=== PATIENT | male | born 1930 | race Caucasian/White ===

== ENCOUNTER 2017-01-17 14:56 | Inpatient (IN) | payer MEDICARE ==
[~2017-01-17] VITALS: Ht 180.3 cm; Wt 72.4 kg
[~2017-01-17 14:56] MED LIST: CALC-766 PO; ENOX40DI8 SUBQ; Hydrocodone/Acetaminophen PO; LATA2.5D6 BOTH_EYES; LOSA100T29 PO; TIMO1DRO3 BOTH_EYES; VIT D PO; WARF7.5T4 PO
[2017-01-17 14:59] VITALS: BP 152/88; PULSE 67; RESP 16; O2SAT 100
[2017-01-17 15:23] LABS: BASOPHILS % (AUTO) 0.2 % (0-3); EOSINOPHILS % (AUTO) 1.8 % (0-5); MONOCYTES % (AUTO) 9.2 % (4-12); Mean Corpuscular Hemoglobin 26.8 pg (27.0-35.0); Mean Corpuscular Volume 85.5 fL (81-100); Platelet Count 176 bil/L (150-400)
[2017-01-17 15:39] LABS: INR 1.69 ratio
--- NOTE | 2017-01-17 16:47 | ED.REPORT ---
HPI-Dizziness / Weakness Date of Service Jan 17, 2017 ED Provider: Filippo Vann MD An 86 year old male with a history of hypertension, TIA, remote prostate cancer , and atrial fibrillation on Coumadin presents to the ED accompanied by his daughter with dizziness onset this morning. The patient also reports lightheadedness, change in speech, nausea, and unsteady ambulation due to imbalance. He denies headache, numbness, weakness, diaphoresis, fever, shortness of breath, palpitations, or other symptoms. The patient was found to be hypertensive at 164/89 while standing at home. Nursing Notes Stated Complaint: DIZZINESS Chief Complaint: General Complaint Nursing Notes Reviewed: Yes ([employer] not reconciled - patient on warfarin) Allergies: Coded Allergies: No Known Allergies (Verified Allergy, Unknown, 06/26/16) Scheduled Calcium Carbonate (Tums) 500 Mg Tab.chew 500 MG PO DAILY Cholecalciferol (Vitamin D3) (Vitamin D) 1,000 Unit Tablet 1,000 UNIT PO DAILY Donepezil (Donepezil) 5 Mg Tablet 5 MG PO HS Ferrous Gluconate (Ferrous Gluconate) 324 Mg Tablet 324 MG PO DAILY Latanoprost (Latanoprost) 2.5 Ml Drops 1 GTT BOTH_EYES HS Losartan Potassium (Losartan Potassium) 100 Mg Tablet 100 MG PO QAM Multivit with Calcium,Iron,Min (Therapeutic M) 1 Each Tablet 1 EACH PO DAILY Timolol Maleate/Pf (Timoptic 0.25% Ocudose Drop) 1 Each Droperette 1 EACH BOTH_ EYES QAM Warfarin Sodium (Warfarin Sodium) 7.5 Mg Tablet 7.5 MG PO QAM Scheduled PRN Acetaminophen (Acetaminophen) 325 Mg Tablet 325-650 MG PO Q4H PRN PRN For Fever General Time Seen by MD: 16:39 Chief Complaint Dizzy Hx Obtained From: Patient Arrived By: Walk-in Onset Occurred: 5 - 8 hours ago Symptom Duration: Since onset Severity: Current: No pain currently Severity: Maximum: No pain Associated with: Reports: Balance problem, Nausea, Denies: Fever Pertinent Negative: Relieved by nothing Related History: Reports: Atrial fibrillation, Hypertension Recent Healthcare: No recent doctor visit Risk Factors NIH Stroke Scale Level of Consciousness: Alert and responsive (0) Ask Month & Age: Both questions right (0) (Answered month wrong but knows year and birthday) Open/Close Eyes/Hand Bag Patcher: Performs both tasks (0) Horizontal EO Movements: None (0) Visual Jacobson: No visual loss (0) Facial Palsy: Normal symmetry (0) Right Arm Motor Drift (10s): No drift 10 sec (0) Left Arm Motor Drift (10s): No drift 10 sec (0) Right Leg Motor Drift (5s): No drift 5 sec (0) Left Leg Motor Drift (5s): No drift 5 sec (0) Limb Ataxia FNF/Heel-Mix: No ataxia (0) Sensation (Arms/Legs/Face): No sensory loss (0) Language Aphasia: No aphasia, normal (0) Dysarthria: No dysarthria, normal (0) Extinction/Inattention: No exctinct/inattent (0) NIHSS Score: 0 Time NIHSS Performed: 16:57 Date NIHSS Performed: Jan 17, 2017 Past Medical History Past Medical History Notes: Past Medical History Hypertension TIA Atrial fibrillation on Coumadin 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 Past Surgical History Vasectomy Right hip hemiarthroplasty Right inguinal hernia repair Cataract extraction bilaterally Smoking History Never Smoker Social History Alcohol Use: Denies alcohol use Drug Use: Denies drug use Other Social History: Good social support, Ambulatory Status Independent Review of Systems Review of Systems Note: + Speech change, Hypertension (164/89) Constitutional: Denies: Fever Respiratory: Denies: Non-productive cough, Shortness of breath Cardiovascular: Denies: Palpitations GI: Reports: Nausea, Denies: Diarrhea, Vomiting Skin: Denies Diaphoresis Neurologic: Reports: Dizziness, Lightheaded, Problem walking (Imbalance), Denies: Headache, Numbness, Weakness Complete sys rev & neg: except as marked. Physical Exam Initial Vital Signs Vital Signs (First) Date Time Temp Pulse Resp B/P Pulse Ox O2 Delivery O2 Flow Rate FiO2 01/17/17 14:59 36.4 67 16 152/88 100 Room Air Initial VS: Reviewed, Vital signs normal Skin: Warm, Dry Psychiatric: Mood/affect normal, Behavior normal, Normal thought content General/Constitutional: Awake, Alert, No acute distress Respiratory / Chest: Breath sounds NL, Breath sounds = bilat, No respiratory distress Cardiovascular: Heart rate NL, Heart sounds NL Heart Rate / Rhythm: Positive: Irregular rhythm Neurologic: Speech NL Disoriented to month, although knows year and birthday Oriented otherwise Wide-based gait Mildly positives Romberg's test Interpretation & Diagnostics Lab Results Interpretation Result Diagram: 01/17/17 1517 01/17/17 1517 Test 01/17/17 15:17 White Blood Count 6.1th/mm3 (3.8-10.1) Red Blood Count 4.62mil/mm3 (4.40-5.80) Hemoglobin 12.4g/dL (13.8-17.2) Hematocrit 39.5% (41.0-50.0) Mean Corpuscular Volume 85.5fL (81-100) Mean Corpuscular Hemoglobin 26.8pg (27.0-35.0) Mean Corpuscular Hemoglobin Concent 31.4% (32.0-37.0) Red Cell Distribution Width 16.7% (12.3-15.4) Platelet Count 176bil/L (150-400) Neutrophils (%) (Auto) 77.0% (40-74) Lymphocytes (%) (Auto) 11.5% (14-46) Monocytes (%) (Auto) 9.2% (4-12) Eosinophils (%) (Auto) 1.8% (0-5) Basophils (%) (Auto) 0.2% (0-3) Prothrombin Time 18.3sec (8.1-12.5) Prothromb Time International Ratio 1.69ratio Sodium Level 139mEq/L (134-144) Potassium Level 4.3mEq/L (3.5-5.2) Chloride Level 101mEq/L (97-108) Carbon Dioxide Level 23mmol/L (18-29) Blood Urea Nitrogen 28mg/dL (8-27) Creatinine 1.00mg/dL (0.76-1.27) Estimat Glomerular Filtration Rate 75mL/min (>59) Glucose Level 149mg/dL (60-99) Calcium Level 9.4mg/dL (8.5-10.1) Total Bilirubin 0.5mg/dL (0.0-1.2) Aspartate Amino Transf (AST/SGOT) 28U/L (0-50) Alanine Aminotransferase (ALT/SGPT) 20U/L (0-44) Alkaline Phosphatase 86U/L (25-160) Troponin T 0.012ug/L (0.0-0.011) Total Protein 7.0g/dL (6.4-8.4) Albumin 3.9g/dL (3.4-5.0) Hold Hobbs Top Tube Received (Received) Lab Results Interpretation: CBC normal CMP normal INR therapeutic Troponin- marginal elevation of uncertain significance ECG Interpretation ECG Interpretation: Rate-controlled atrial fibrillation rate 59 Nothing acute Time: 16:46 Interpreted by: ED physician X-Ray Chest Interpretation Chest Xray Interpretation: IMPRESSION: 1. No acute process. 2. Cardiomegaly. 3. Remote granulomatous disease. Dictated by: Benjamín Conroy M.D. on 01/17/2017 at 17:09 View: Portable, 1 view Interpretation / Wet Read by: Interpret - Radiologist CT Head Interpretation IMPRESSION: No acute intracranial abnormality. Dictated by: Benjamín Conroy M.D. on 01/17/2017 at 17:16 Study: Head CT no contrast Interpretation / Wet Read by: Interpret - Radiologist Re-Eval/Medical Decision Med Decision/Clinical Course This is an 86-year-old male brought by family as they noticed at 1 PM today when they came to visit that his speech was off, and his balance and dramatically changed markedly abnormal gait. Patient reports symptoms that she started around 8 AM where he felt dizzy and was having troubles with walking- but he denied numbness in the weakness or arms. He is on warfarin for atrial fibrillation. He denies headache or trauma. When his family noticed his symptoms, I ultimately were able to get him to come to the emergency department. Family notes that his speech deficit was mild but definite-and that he think it is now resolved. His balance is remained unchanged, it is poor with a new gait disturbance according to the family that has persisted. Patient has prior history of stroke. On exam the patient's well-appearing and in no visible distress. His speech is normal. He names the wrong month-buts gets the year and is able to name his birthdate - but essentially has an NIH stroke scale of 0 with no definite focal findings. He passes all the other language speech components. And his family who witnessed a speech disturbance earlier, again agree that his speech is back to normal. However when ambulating him although is energetic and jumps right up he uses a wide-based gait, and a slightly unstable-although it is not consistent that he falls to one side. The family insists this is a dramatic change in his gait from even this morning. His finger-nose was normal with no ataxia. A noncontrast head CT was negative. Patient's blood work is notable for subtherapeutic INR, the patient's in rate controlled atrial fibrillation without ischemic change. His troponin is markedly elevated-do not get any real clinically specific symptoms to suggest an acute coronary syndrome. The troponin to be trended, and his overall presentation is much more concerning for CVA. Patient is not a candidate for TPA. The patient is being admitted for continued management. An MRI has been ordered. Case is discussed with the hospitalist. Source of Hx: Old records Re-Evaluation/Progress : Time of Eval: 18:35 Patient Status: Condition improved Re-Evaluation/Progress Note: Discussed with patient CT, x-ray, and lab results, diagnosis, and plan for admit. Patient agrees with plan for care and all questions were addressed. Consultation : Referral / Consult Name: Donato Schmid MD Consulted With: Hospitalist Call Returned at: 18:13 Crystallizer Operator: Agrees with eval, Agrees with plan, Accepts admit Differential Diagnosis: Positive: Cerebrovascular accident, Negative: Acute coronary syndrome, Heat exhaustion, Heat stroke, Hyperventilation syndrome, Hypoglycemia, Hypothyroidism, Intracranial bleed, Migraine disorder, Pulmonary embolus, Sepsis, Subarachnoid hemorrhage, Tick paralysis, Vertigo, central, Vertigo, peripheral Counseled Regarding: Diagnosis, Lab results, Need for admission Patient Discharge & Departure Impression: Primary Impression: CVA (cerebral vascular accident) CVA mechanism: unspecified Qualified Code: I63.9 - Cerebral infarction, unspecified Additional Impressions: Atrial fibrillation Atrial fibrillation type: chronic Qualified Code: I48.2 - Chronic atrial fibrillation Subtherapeutic international normalized ratio (INR) Elevated troponin Disposition: ADMITTED TO HOSPITAL Discharge Condition All VS Reviewed: Yes Condition: Improved Referrals: [facility] Scribbarber Attestation Portions of this note were transcribed by Reina Clinton. I, Dr. Vann, personally performed the history, physical exam, and medical decision-making; I reviewed and confirmed the accuracy of the information in the transcribed note. Signed by: Roman Marley, 01/17/2017, 20:30 [facility] Filippo Vann MD Jan 17, 2017 16:47 REINA CLINTON Jan 17, 2017 16:56
[2017-01-17 16:50] VITALS: BP 166/89; PULSE 58; RESP 21; O2SAT 99
--- NOTE | 2017-01-17 17:36 | DRSVH ---
PROCEDURE: X-RAY CHEST ONE VIEW, PORTABLE ([id number]) INDICATIONS: CVA TECHNIQUE: One view of the chest was acquired. COMPARISON: None. FINDINGS: Surgical changes and devices: None. Lungs and pleura: No pleural effusions or pneumothorax. Scattered calcified granulomata are present within the bilateral mid and upper lungs. Lungs are otherwise clear. Mediastinum: Mediastinal contours appear normal. Heart size is enlarged. Bones and chest wall: No suspicious bony lesions. Overlying soft tissues appear unremarkable. IMPRESSION: 1. No acute process. 2. Cardiomegaly. 3. Remote granulomatous disease. Dictated by: Benjamín Conroy M.D. on 01/17/2017 at 17:09 Approved by: Benjamín Conroy M.D. on 01/17/2017 at 17:10
--- NOTE | 2017-01-17 17:36 | DRSVH ---
PROCEDURE: CT BRAIN WITHOUT CONTRAST ([id number]) INDICATIONS: cva - speech and gait - Afib on coumadin TECHNIQUE: Noncontrast 4.5 mm thick angled axial sections acquired from the foramen magnum to the vertex, with c oronal reformats. COMPARISON: None. FINDINGS: Image quality: Excellent. CSF spaces: Basal cisterns are patent. No extra-axial fluid collections. The ventricles are symmet waylon in size and shape. Brain: No intracranial bleeds or masses. There is cerebral volume loss for age, with resultant vent ricular and sulcal prominence. There are periventricular and deep white matter chronic small vessel ischemic changes. There is intracranial internal carotid artery atherosclerosis. Skull and face: Calvarium and visualized facial bones appear intact, without suspicious lesions. Sinuses: Visualized sinuses and mastoids are clear. IMPRESSION: No acute intracranial abnormality. Dictated by: Benjamín Conroy M.D. on 01/17/2017 at 17:16 Approved by: Benjamín Conroy M.D. on 01/17/2017 at 17:16
[2017-01-17 17:52] VITALS: BP 168/97; PULSE 63; RESP 18; O2SAT 100
[2017-01-17] MEDS ORDERED: CHOL100043 PO (18:03)
[2017-01-17] MEDS ORDERED: DONE5TAB30 PO (18:03)
[2017-01-17] MEDS ORDERED: DICL100G30 TOPICAL (18:03)
[2017-01-17] MEDS ORDERED: MULT-140 PO (18:09)
[2017-01-17] MEDS ORDERED: CALC500T9 PO (18:09)
[2017-01-17] MEDS ORDERED: FERR324T5 PO (18:09)
[2017-01-17] MEDS ORDERED: ACET325T51 PO (18:09)
[2017-01-17] MEDS ORDERED: 0.9% Sodium Chloride 1,000 ML IV SCH (18:27)
[2017-01-17] MEDS ORDERED: Ondansetron 2 mg/mL 2 mL Inj IVPUSH PRN (18:30)
[2017-01-17] MEDS ORDERED: Alum-Mag Hydrox-Simeth 30 mL Suspension PO PRN (18:30)
[2017-01-17 20:17] VITALS: BP 163/96; PULSE 74; RESP 18; O2SAT 99
--- NOTE | 2017-01-17 20:20 | DRSVH ---
PROCEDURE: MRI STROKE PROTOCOL ([id number]) Pre- and post-contrast brain MRI, non-contrast brain MR angiogram, pre- and postcontrast neck MR monse ogram INDICATIONS: ataxia, speech, afib subtherapeutic TECHNIQUE: Brain: Noncontrast axial T1 spin echo, axial T2 fast spin echo, sagittal and axial FLAIR, coronal T2 fast spin echo, axial gradient echo, axial diffusion and ADC through the brain. After the administr ation of contrast, axial 3D VIBE of the cranial vasculature and brain. Brain MRA: Non-contrast 3-D time of flight MR angiogram, with multiple unnidfd-vkjnixwdi-vuzlinkfpj (MIP) reformats performed. Neck MRA: Axial and sagittal TruFISP through the neck. Coronal dynamic MR angiogram during administ ration of contrast in the arterial and venous phases, with 3-dimenstional tydkjvf-hyegunrdv-hgwivwjtc n (MIP) reformats constructed from subtraction images. COMPARISON: [facility], CT, CT BRAIN WO CON, 01/17/2017, 17:10. FINDINGS: Image quality: Excellent. BRAIN: CSF spaces: Ventricles are normal in size and shape. Basal cisterns are patent. No extra-axial flu id collections. Brain: No intracranial bleeds or mass effects. Kincaid-white matter interface is normal. Diffusion we ighted images show definite bilateral cerebellar mild acute ischemic insults comprise generally of ce rebellar hemispheric punctate foci of ischemic injury, left slightly greater than right, and more sup eriorly throughout the cerebrum no additional areas of ischemic injury are found. Brainstem appears normal. Normal intravascular flow voids are present. No abnormal intracranial enhancement. Skull and face: Calvarial marrow signal is normal. Orbits appear normal. Sinuses: Sinuses and mastoids are clear. BRAIN MR ANGIOGRAM: Anterior circulation: Intracranial internal carotid arteries are normal in size and enhancement. Th e flow within the paired anterior cerebral arteries is normal and symmetric. The flow within the mid dle cerebral arteries is normal and symmetric. The anterior communicating artery is seen. No stenos es, occlusions, or aneurysms. Posterior circulation: The visualized portions of the vertebral arteries demonstrate normal caliber, and join to form a normal appearing basilar artery. The flow within the posterior cerebral arteries is normal and symmetric. No stenoses, occlusions, or aneurysms. NECK MR ANGIOGRAM: Carotids: Great vessels demonstrate a conventional anatomy as they arise from the aortic arch. The origins of the common carotid arteries appear patent. The calibers and courses of both common caroti d arteries are normal. The bifurcation regions appear normal bilaterally. The internal carotid bonnie marek demonstrate normal course and caliber. Posterior circulation: The origins of the right vertebral artery appear patent but for 4.5 cm above the origin of the left vertebral artery no flow is seen within the vessel. Flow above that level on the left appears likely retrograde. More superior portions of both vertebral arteries demonstrate no rmal course and caliber, and join to form a normal appearing basilar artery. Miscellaneous: Subclavian arteries appear patent. Pre-contrast images through the neck show no soft tissue abnormalities. IMPRESSION: BRAIN MRI: Within the cerebral hemispheres bilaterally no ischemic injury is seen but there is defin ite multifocal small punctate areas of acute or subacute ischemic injury involving the cerebellar hem ispheres bilaterally slightly greater on the left than the right. No hemorrhage or mass effect is as sociated. The appearance is suggestive of an embolic event through the posterior circulation aiden ing cephalad through the basilar artery and then extending bilaterally into the cerebellar parenchyma . BRAIN MR ANGIOGRAM: Normal intracranial MR angiogram. NECK MR ANGIOGRAM: There is a 4.5 cm length of the proximal left vertebral artery which shows no int ernal flow but above that level of the left vertebral artery can be seen as perfused, likely through retrograde flow from the posterior circulation. The more superior vertebral arteries bilaterally are patent, and the basilar artery appears normal as does the extension of posterior circulation and the posterior fossa. 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 The estimate of stenosis included in the report of the imaging study was calculated using the NASCET method Dictated by: Geraldo Chambers M.D. on 01/17/2017 at 20:08 Approved by: Geraldo Chambers M.D. on 01/17/2017 at 20:18
[2017-01-17 22:36] LABS: APPEARANCE,URINE CLEAR (CLEAR,HAZY); COLOR,URINE STRAW (YELLOW); OCCULT BLOOD,URINE TRACE (NEGATIVE); PH,URINE 5.5 (5.0-8.0); UROBILINOGEN,URINE NORMAL (NORMAL)
[2017-01-17] MEDS: 0.9% Sodium Chloride 1,000 ML IV SCH (22:54)
[2017-01-17] MEDS ORDERED: Enalaprilat 1.25 mg/mL 2 mL Inj IVPUSH PRN (22:55)
[2017-01-17] MEDS ORDERED: Labetalol 5 mg/mL 4 mL Inj IVPUSH PRN (22:55)
--- NOTE | 2017-01-17 23:00 | NUR ---
admit: admit questions and med rec completed in the ER. pt arrived to floor with family at bedside. pt A&OX3 forgetful. tele in place, IVF per orders. pt is pleasant and cooperative with care. bed alarm in place, pt instructed to call for assistance oob. will continue to monitor.
--- NOTE | 2017-01-17 23:12 | PCM.HPMED ---
Subjective Date of Service Jan 17, 2017 Primary Provider: Admitting Physician: Donato Schmid MD Primary Care Physician: Sathya Arellano Attending Physician: Donato Schmid MD Chief Complaint: Slurred speech abnormal gait HISTORY was OBTAINED FROM GRANDDAUGHTER WHO IS A NURSE/ [employer] NOTES History of present illness 86-year-old male, left handed, with only 1 TIA 8 years ago in [place] with negative radiographic workup at that time, with chronic atrial fibrillation that started more than 8 years ago, BIB family after he tolerated breakfast this morning then complained of nausea and lightheadedness, he took a nap, by that time granddaughter who is a nurse stopped by, she found him to have slurred speech w/ blood pressure 164/89 heart rate 60s and unsteady gait. No recent aspirin use. No recent echo. Not diabetic. no change in diet. no change in medications. typically INR 2.4-2.5. In the ER INR for atrial fibrillation is 1.7, slurred speech resolved, unsteady wide based gait ongoing, MR angio is consistent with bilateral left greater than right embolic cerebrallar stroke acute/subacute. Review of Systems - none of the following - F/C/sick contact / wt change/ ALEMAN / sob / cough / cp / acid reflux / n/v/diarrhea / bleeding/bruising / leg swelling / change in voiding / yeast infections / rash ambulates w/ cane FAMILY HX no CVA SOCIAL HX no smoking no alcohol MEDICATIONS Scheduled Calcium Carbonate (Tums) 500 Mg Tab.chew 500 MG PO DAILY Cholecalciferol (Vitamin D3) (Vitamin D) 1,000 Unit Tablet 1,000 UNIT PO DAILY Donepezil (Donepezil) 5 Mg Tablet 5 MG PO HS Ferrous Gluconate (Ferrous Gluconate) 324 Mg Tablet 324 MG PO DAILY Latanoprost (Latanoprost) 2.5 Ml Drops 1 GTT BOTH_EYES HS Losartan Potassium (Losartan Potassium) 100 Mg Tablet 100 MG PO QAM Multivit with Calcium,Iron,Min (Therapeutic M) 1 Each Tablet 1 EACH PO DAILY Timolol Maleate/Pf (Timoptic 0.25% Ocudose Drop) 1 Each Droperette 1 EACH BOTH_ EYES QAM Warfarin Sodium (Warfarin Sodium) 7.5 Mg Tablet 7.5 MG PO QAM Acetaminophen (Acetaminophen) 325 Mg Tablet 325-650 MG PO Q4H PRN PRN For Fever Past Medical/Surgical HX Hypertension TIA 8 years ago unilateral weakness resolved Atrial fibrillation on Coumadin 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 Vasectomy Right hip hemiarthroplasty Right inguinal hernia repair Cataract extraction bilaterally Exam on admission on RA NAD A and O x 3 mood affect WNL easily awakened NC/AT no icterus no injected eyes EOMI PERRL /no pharyngeal lesions/ no oral lesions / hearing intact Supple neck CTAB equal chest rise / no accessory muscle use / speaks in full sentences / no rrw RRR S1 S2 / no mrg / 2+ radial pulses Soft nt nd + BS no hepatosplenomegaly No edema no cyanosis no ecchymosis of lower extremities No rash / no jaundice SOLORZANO CNII-XII grossly intact symmetrical, symmetrical facies, except for slurred speech mild dysmetria of bilateral upper and left lower limbs, moderate dysmetria of right lower limb Strength grossly intact of bilateral upper and lower limbs, except weaker left upper extremity abduction and weaker left wrist strength STUDIES EKG afib 59 CXR cardiomegaly, granulomatous disease hx Trop 0.02 BNP pending LFT normal Imaging PROCEDURE: MRI STROKE PROTOCOL ([id number]) Pre- and post-contrast brain MRI, non-contrast brain MR angiogram, pre- and postcontrast neck MR angiogram INDICATIONS: ataxia, speech, afib subtherapeutic TECHNIQUE: Brain: Noncontrast axial T1 spin echo, axial T2 fast spin echo, sagittal and axial FLAIR, coronal T2 fast spin echo, axial gradient echo, axial diffusion and ADC through the brain. After the administration of contrast, axial 3D VIBE of the cranial vasculature and brain. Brain MRA: Non-contrast 3-D time of flight MR angiogram, with multiple maximum- intensity-projection (MIP) reformats performed. Neck MRA: Axial and sagittal TruFISP through the neck. Coronal dynamic MR angiogram during administration of contrast in the arterial and venous phases, with 3-dimenstional jsxloaf-bwfnukujf-cgxuhojgck (MIP) reformats constructed from subtraction images. COMPARISON: [facility], CT, CT BRAIN WO CON, 01/17/2017, 17:10. FINDINGS: Image quality: Excellent. BRAIN: CSF spaces: Ventricles are normal in size and shape. Basal cisterns are patent. No extra-axial fluid collections. Brain: No intracranial bleeds or mass effects. Kincaid-white matter interface is normal. Diffusion weighted images show definite bilateral cerebellar mild acute ischemic insults comprise generally of cerebellar hemispheric punctate foci of ischemic injury, left slightly greater than right, and more superiorly throughout the cerebrum no additional areas of ischemic injury are found. Brainstem appears normal. Normal intravascular flow voids are present. No abnormal intracranial enhancement. Skull and face: Calvarial marrow signal is normal. Orbits appear normal. Sinuses: Sinuses and mastoids are clear. BRAIN MR ANGIOGRAM: Anterior circulation: Intracranial internal carotid arteries are normal in size and enhancement. The flow within the paired anterior cerebral arteries is normal and symmetric. The flow within the middle cerebral arteries is normal and symmetric. The anterior communicating artery is seen. No stenoses, occlusions, or aneurysms. Posterior circulation: The visualized portions of the vertebral arteries demonstrate normal caliber, and join to form a normal appearing basilar artery. The flow within the posterior cerebral arteries is normal and symmetric. No stenoses, occlusions, or aneurysms. NECK MR ANGIOGRAM: Carotids: Great vessels demonstrate a conventional anatomy as they arise from the aortic arch. The origins of the common carotid arteries appear patent. The calibers and courses of both common carotid arteries are normal. The bifurcation regions appear normal bilaterally. The internal carotid arteries demonstrate normal course and caliber. Posterior circulation: The origins of the right vertebral artery appear patent but for 4.5 cm above the origin of the left vertebral artery no flow is seen within the vessel. Flow above that level on the left appears likely retrograde. More superior portions of both vertebral arteries demonstrate normal course and caliber, and join to form a normal appearing basilar artery. Miscellaneous: Subclavian arteries appear patent. Pre-contrast images through the neck show no soft tissue abnormalities. IMPRESSION: BRAIN MRI: Within the cerebral hemispheres bilaterally no ischemic injury is seen but there is definite multifocal small punctate areas of acute or subacute ischemic injury involving the cerebellar hemispheres bilaterally slightly greater on the left than the right. No hemorrhage or mass effect is associated. The appearance is suggestive of an embolic event through the posterior circulation traversing cephalad through the basilar artery and then extending bilaterally into the cerebellar parenchyma. BRAIN MR ANGIOGRAM: Normal intracranial MR angiogram. NECK MR ANGIOGRAM: There is a 4.5 cm length of the proximal left vertebral artery which shows no internal flow but above that level of the left vertebral artery can be seen as perfused, likely through retrograde flow from the posterior circulation. The more superior vertebral arteries bilaterally are patent, and the basilar artery appears normal as does the extension of posterior circulation and the posterior fossa. 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, subtherapeutic INR, in the setting of chronic atrial fibrillation, ongoing wide-based gait/dysmetria /slurred speech/ left upper extremity weakness (patient attributes to left shoulder issues?) -- Pending echo, lipid panel, PT OT permissive hypertension, when necessary labetalol and enalapril, hold home losartan -- Statin, hold aspirin, continue Coumadin --s/p MRI head/neck, unremarkable CT head -- Review of up-to-date indicates increasing anticoagulation from 2-3 to 2.5-3.5 , after hemorrhagic conversion period has passed within 24-48 hours, already ordered coumadin for pharmacy to dose for goal INR 2.5 ordered tonight. 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 Vasectomy Right hip hemiarthroplasty Right inguinal hernia repair Cataract extraction bilaterally Diet tolerated pudding w RN eval DVT prophylaxis heparin scd ambulate -- DC HEPARIN WHEN INR > 2.5 Code full Disposition OBS status Assessment and plan were discussed with patient granddaughter Allergies Coded Allergies: No Known Allergies (Verified Allergy, Unknown, 06/26/16) PMH Social History Hx Alcohol Use: No Hx Substance Use: No Smoking Status: Never Smoker Exam Vital Signs Vital Sign - Last Date Time Temp Pulse Resp B/P Pulse Ox O2 Delivery O2 Flow Rate FiO2 01/17/17 20:17 36.6 74 18 163/96 99 Room Air Lab and Diagnostics Result Diagram: 01/17/17 1517 01/17/17 1517 Donato Schmid MD Jan 17, 2017 23:12
[2017-01-18] VITALS (7 sets, daily range): BP systolic 98–165; BP diastolic 63–93; PULSE 58–77; RESP 16–20; O2SAT 96–99
[2017-01-18 06:20] LABS: INR 1.79 ratio
[2017-01-18 06:28] LABS: TROPONIN T 0.021 ug/L (0.0-0.011)
[2017-01-18] MEDS: 0.9% Sodium Chloride 1,000 ML IV SCH ×2 (07:58→19:38)
[2017-01-18] MEDS: TIMOLOL 0.25% BOTH_EYES SCH (07:59)
[2017-01-18 08:30] LABS: Creatine Kinase 143 U/L (21-232)
--- NOTE | 2017-01-18 11:35 | NUR ---
Evaluation completed. Please go to "Notes" then click on "Assessments and Notes" (bottom left corner of screen). Then select appropriate discipline tab on top of screen.
--- NOTE | 2017-01-18 15:32 | NUR ---
SW updated by MARK RN that pt has been switched to inpt, TRENA signed at bedside with pt. MARCIANO Rand
--- NOTE | 2017-01-18 15:42 | NUR ---
Inpatient status effective today, 01/18/17
--- NOTE | 2017-01-18 15:46 | NUR ---
Social Work-initial assessment: Data:See initial assessment. Pt is a 86 y/o male who was admitted on 01/17/17 for CVA per H&P. Pt's insurance is [employer] and PCP is AKTIE Cruz. EMR Reviewed. SW met with pt at bedside to discuss discharge planning, SW role explained. Pt is alert and oriented x3. Pt resides at home with his where he remains independent with ADLS. Pt does not use any DME and does drive. Pt has no HH, but has a history of [facility] [place]. Pt states his has assistance from visiting [employer](private pay caregiving) at home. Pt has no long-term care insurance or VA benefits. SW discussed DPOA/ advanced directive, pt confirms that he has completed this, SW encouraged pt to bring a copy into the hospital. PT/OT/ST are pending. Pt feels like he has enough assistance at home. SW to follow up post therapy services to determine needs. Pt's family to provide transport home when medically stable. SW provided phone number and plan on white board in room. SW will continue to follow. Assessment:Pt who is independent at baseline. Plan:Anticipate pt to return home when medically stable via POV. PT/OT/ST are pending. SW will continue to follow. MARCIANO Rand Addendum: 01/18/17 at 1555 by MARTINEZ FITZGERALD SS Amended: Links added.
[2017-01-18] MEDS ORDERED: Warfarin 5 MG, Warfarin 2.5 MG PO ONE ×2 (17:00)
--- NOTE | 2017-01-18 18:07 | NUR ---
Evaluation completed. Please go to "Notes" then click on "Assessments and Notes" (bottom left corner of screen). Then select appropriate discipline tab on top of screen.
--- NOTE | 2017-01-18 19:27 | PCM.PNMED ---
Subjective Date of Service Jan 18, 2017 Subjective 86-year-old male with past medical history significant for TIA 8 years ago, hypertension, atrial fibrillation on Coumadin who presents to the emergency department with lightheadedness followed by slurred speech and called the walking. This morning patient reports doing well, he has no pain. He does not endorse any residual slurred speech. She is having no trouble eating. He does have some difficulty walking however is able to with assist. Exam Vital Signs Vital Sign - Last Date Time Temp Pulse Resp B/P Pulse Ox O2 Delivery O2 Flow Rate FiO2 01/18/17 06:11 64 01/18/17 02:06 36.1 18 165/92 96 Room Air Exam General: No acute distress, well-developed, well-nourished, appropriately interactive HEENT: Normocephalic, atraumatic. External ears without defect. Pupils equal, round, and reactive to light and accommodation. Anicteric sclerae, moist conjunctivae, and no lid lag. Oropharynx free of erythema and cobble stoning with moist mucosa. Neck: Supple with full range of motion. No jugular venous distension. No lymphadenopathy or thyromegaly. Cardiovascular: Regular rate and rhythm with no murmurs, rubs, or gallops appreciated Pulmonary: Clear to auscultation bilaterally with no crackles, wheezes, or rhonchi. Normal respiratory effort with no use of accessory muscles. Abdomen: Bowel tones present. Soft, nontender, nondistended. No hepatosplenomegaly or masses appreciated. Extremities: No clubbing, cyanosis, edema, or lymphadenopathy appreciated. Skin: Normal temperature, turgor, and texture; no rash, ulcers, or subcutaneous nodules appreciated. Neurological: Cranial nerves grossly intact. Normal muscle strength, tone, and bulk. Kipo-[id number] ataxic, finger to nose essentially normal. Patient speaks in full sentences that are intelligible. Psychiatric: Normal mood and affect. Alert and oriented to person, place, and time. Lab and Diagnostics Result Diagram: 01/17/17 1517 01/17/17 1517 X-Rays, CTs and MRIs PROCEDURE: X-RAY CHEST ONE VIEW, PORTABLE ([id number]) Lungs and pleura: No pleural effusions or pneumothorax. Scattered calcified granulomata are present within the bilateral mid and upper lungs. Lungs are otherwise clear. IMPRESSION: 1. No acute process. 2. Cardiomegaly. 3. Remote granulomatous disease. Dictated by: Benjamín Conroy M.D. on 01/17/2017 at 17:09 PROCEDURE: CT BRAIN WITHOUT CONTRAST ([id number]) IMPRESSION: No acute intracranial abnormality. Dictated by: Benjamín Conroy M.D. on 01/17/2017 at 17:16 PROCEDURE: MRI STROKE PROTOCOL ([id number]) IMPRESSION: BRAIN MRI: Within the cerebral hemispheres bilaterally no ischemic injury is seen but there is definite multifocal small punctate areas of acute or subacute ischemic injury involving the cerebellar hemispheres bilaterally slightly greater on the left than the right. No hemorrhage or mass effect is associated. The appearance is suggestive of an embolic event through the posterior circulation traversing cephalad through the basilar artery and then extending bilaterally into the cerebellar parenchyma. BRAIN MR ANGIOGRAM: Normal intracranial MR angiogram. NECK MR ANGIOGRAM: There is a 4.5 cm length of the proximal left vertebral artery which shows no internal flow but above that level of the left vertebral artery can be seen as perfused, likely through retrograde flow from the posterior circulation. The more superior vertebral arteries bilaterally are patent, and the basilar artery appears normal as does the extension of posterior circulation and the posterior fossa. 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 The estimate of stenosis included in the report of the imaging study was calculated using the NASCET method Dictated by: Geraldo Chambers M.D. on 01/17/2017 at 20:08 Assessment & Plan 86-year-old male with past medical history significant for TIA 8 years ago, hypertension, atrial fibrillation on Coumadin who presents to the emergency department with lightheadedness followed by slurred speech and called the walking. 1. 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 - Lipid panel normal - permissive hypertension, when necessary labetalol and enalapril, hold home losartan - Statin, hold aspirin until 01/19/2017 once hemorrhagic conversion timeframe has passed, continue Coumadin - MRI head/neck results above, unremarkable CT head - Review of up-to-date indicates increasing anticoagulation from 2-3 to 2.5-3.5 , after hemorrhagic conversion period has passed within 24-48 hours, coumadin for pharmacy to dose for goal INR 2.5 - uptodate recommends against antiplatelet due to higher chance of hemorrhagic conversion 2. Elevated troponin of undetermined significance, present on admission, active - Troponin mildly elevated with maximum of 0.024 - Patient has no chest pain, back pain, shoulder pain, shortness of breath, or diaphoresis - EKG shows atrial fibrillation at a rate of 59, no ST changes - Continue to follow Chronic issues known prior to admission, present on admission Hypertension -Allow for permissive hypertension, restart home losartan 01/20/2017 TIA 8 years ago unilateral weakness resolved Atrial fibrillation on Coumadin Right hip hemiarthroplasty -Patient with stiffness in the [id number] exam DVT prophylaxis heparin scd ambulate -- DC HEPARIN WHEN INR > 2.5 Patient was admitted under inpatient status with expected length of stay greater than 2 midnights due to severity of presenting symptoms, risk of adverse event, and complexity of treatment plan. Physical therapy anticipates discharge to home with no needs Pain Evaluation: Adequate Pain Control GI Prophylaxis: Not indicated VTE Prophylaxis: Sub-Q Heparin (Unfractionated) VTE Mechanical Devices: Intermittant Pneumatic CD Resuscitation Status: CPR: Attempt Resuscitation Attending Statement The patient was seen and examined together with Dr. Velazquez on 01/18/2017 and I agree with the history, exam and plan as outlined in the note above. Mary Velazquez DO Jan 18, 2017 07:44 Cricket Rice MD Jan 19, 2017 11:36
[2017-01-19] VITALS (9 sets, daily range): BP systolic 141–169; BP diastolic 69–86; PULSE 60–75; RESP 18–20; O2SAT 95–100
[2017-01-19] MEDS: Heparin 5,000 Unit/mL Inj SUBQ SCH ×3 (00:04→17:00)
[2017-01-19 06:48] LABS: INR 1.8 ratio
[2017-01-19 07:59] LABS: TROPONIN T 0.021 ug/L (0.0-0.011)
[2017-01-19] MEDS: TIMOLOL 0.25% BOTH_EYES SCH (10:13)
--- NOTE | 2017-01-19 11:32 | NUR ---
Social Work-readiness for discharge: Data:EMR reviewed. Pt is on day 2 of hospitalization for CVA per H&P. Pt is not medically stable for discharge anticipate 1-2 more days. PT and ST both saw pt yesterday and cleared pt for home no needs. Pt's INR is not therapeutic yet. SW confirmed plan of home no needs. Pt's family to provide transport home. No discharge needs identified. SW will continue to follow if needs arise. Assessment:pt who is independent at baseline. Plan:Pt to discharge home when medically stable via POV. No discharge needs identified. SW will continue to follow if needs arise. MARCIANO Rand
[2017-01-19] MEDS: 0.9% Sodium Chloride 1,000 ML IV SCH (12:24)
--- NOTE | 2017-01-19 13:23 | PCM.PNMED ---
Subjective Date of Service Jan 19, 2017 Agustina Denise is an 86-year-old male with past medical history significant for TIA 8 years ago, hypertension, atrial fibrillation on Coumadin who presents to the emergency department with lightheadedness followed by slurred speech and called the walking. 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 Hospital day #3 Overnight: No acute events. Today: The patient states his speech is back to normal and so is his gait. Overall he states he feels well and has no complaints. The remainder of the review of systems is negative except as noted above. Exam Vital Signs Vital Sign - Last Date Time Temp Pulse Resp B/P Pulse Ox O2 Delivery O2 Flow Rate FiO2 01/19/17 09:43 36.3 60 18 147/71 100 Room Air Intake and Output 01/18/17 01/18/17 01/19/17 Cumulative From/Thru 15:00 23:00 07:00 01/17/17 14:59 - 01/19/17 06:39 Intake Total 0 ml 2210 ml 300 ml 2510 ml Output Total 300 ml 880 ml 1325 ml 2505 ml Balance -300 ml 1330 ml -1025 ml 5 ml Intake Oral 0 ml 1382 ml 300 ml 1682 ml IV Total 828 ml 828 ml Output Urine Total 300 ml 880 ml 1325 ml 2505 ml # Bowel Movements 1 1 Exam General: No acute distress, well-developed, well-nourished, appropriately interactive HEENT: Normocephalic, atraumatic. External ears without defect. Pupils equal, round, and reactive to light and accommodation. Anicteric sclerae, moist conjunctivae, and no lid lag. Oropharynx free of erythema and cobble stoning with moist mucosa. Neck: Supple with full range of motion. No jugular venous distension. No lymphadenopathy or thyromegaly. Cardiovascular: Irregularly irregular with no murmurs, rubs, or gallops appreciated Pulmonary: Clear to auscultation bilaterally with no crackles, wheezes, or rhonchi. Normal respiratory effort with no use of accessory muscles. Abdomen: Bowel tones present. Soft, nontender, nondistended. No hepatosplenomegaly or masses appreciated. Extremities: No clubbing, cyanosis, edema, or lymphadenopathy appreciated. Skin: Normal temperature, turgor, and texture; no rash, ulcers, or subcutaneous nodules appreciated. Neurological: Cranial nerves grossly intact. Normal muscle strength, tone, and bulk. Patient speaks in full sentences that are intelligible. Psychiatric: Normal mood and affect. Alert and oriented to person, place, and time. Lab and Diagnostics Result Diagram: 01/17/17 1517 01/19/17 0519 X-Rays, CTs and MRIs PROCEDURE: X-RAY CHEST ONE VIEW, PORTABLE Lungs and pleura: No pleural effusions or pneumothorax. Scattered calcified granulomata are present within the bilateral mid and upper lungs. Lungs are otherwise clear. IMPRESSION: 1. No acute process. 2. Cardiomegaly. 3. Remote granulomatous disease. Dictated by: Benjamín Conroy M.D. on 01/17/2017 at 17:09 PROCEDURE: CT BRAIN WITHOUT CONTRAST IMPRESSION: No acute intracranial abnormality. Dictated by: Benjamín Conroy M.D. on 01/17/2017 at 17:16 PROCEDURE: MRI STROKE PROTOCOL IMPRESSION: BRAIN MRI: Within the cerebral hemispheres bilaterally no ischemic injury is seen but there is definite multifocal small punctate areas of acute or subacute ischemic injury involving the cerebellar hemispheres bilaterally slightly greater on the left than the right. No hemorrhage or mass effect is associated. The appearance is suggestive of an embolic event through the posterior circulation traversing cephalad through the basilar artery and then extending bilaterally into the cerebellar parenchyma. BRAIN MR ANGIOGRAM: Normal intracranial MR angiogram. NECK MR ANGIOGRAM: There is a 4.5 cm length of the proximal left vertebral artery which shows no internal flow but above that level of the left vertebral artery can be seen as perfused, likely through retrograde flow from the posterior circulation. The more superior vertebral arteries bilaterally are patent, and the basilar artery appears normal as does the extension of posterior circulation and the posterior fossa. 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 The estimate of stenosis included in the report of the imaging study was calculated using the NASCET method Dictated by: Geraldo Chambers M.D. on 01/17/2017 at 20:08 Assessment & Plan Misael Denise is an 86-year-old male with past medical history significant for TIA 8 years ago, hypertension, atrial fibrillation on Coumadin who presents to the emergency department with lightheadedness followed by slurred speech and called the walking. 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 Hospital day #3 1. 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 - Improved gait/dysmetria - slurred speech resolved - left upper extremity weakness (patient attributes to left shoulder issues?) - Echo pending - PT cleared patient to go home - Speech therapy recommends Thin/Dysphagia Mechanical diet with medication as tolerated. - Lipid panel normal - permissive hypertension for 24 hours, when necessary labetalol and enalapril, will restart home losartan - Statin, restart ASA once hemorrhagic conversion timeframe has passed, continue Coumadin - MRI head/neck results above, unremarkable CT head - Review of up-to-date indicates increasing anticoagulation from 2-3 to 2.5-3.5 , after hemorrhagic conversion period has passed within 24-48 hours, coumadin for pharmacy to dose for goal INR 2.5 - uptodate recommends against antiplatelet due to higher chance of hemorrhagic conversion 2. Elevated troponin of undetermined significance, present on admission, active - Troponin mildly elevated with maximum of 0.024 - Patient has no chest pain, back pain, shoulder pain, shortness of breath, or diaphoresis - EKG shows atrial fibrillation at a rate of 59, no ST changes - Continue to follow Chronic issues known prior to admission, present on admission Hypertension -Allow for permissive hypertension for 24 hours -Restarted home losartan TIA 8 years ago unilateral weakness resolved Atrial fibrillation on Coumadin Right hip hemiarthroplasty -Patient with stiffness in the qjrk-tv-bonh exam DVT prophylaxis heparin scd ambulate -- DC HEPARIN WHEN INR > 2.5 Dispo: Anticipate patient will be in house for several more days while his INR becomes therapeutic as his CVA is a direct result of his AFib. GI Prophylaxis: Not indicated VTE Prophylaxis: Sub-Q Heparin (Unfractionated) VTE Mechanical Devices: Intermittant Pneumatic CD Resuscitation Status: CPR: Attempt Resuscitation Attending Statement The patient was seen and examined together with Dr. Ross on 01/19/2017 and I agree with the history, exam and plan as outlined in the note above. Macey Ross DO Jan 19, 2017 13:12 Cricket Rice MD Jan 19, 2017 17:44
--- NOTE | 2017-01-19 14:44 | NUR ---
INR COAGULATION P- Patient is subtherapeutic INR today 1.8. I- Heparin SQ given Q8hrs, Coumadin at 1700 until INR> 2.5 E- Continue to monitor.
--- NOTE | 2017-01-19 15:30 | NUR ---
Assumed care Assumed care of pt at 1525, introduced myself to pt who was sitting up in bed, visiting with family. Denies any pain/discomfort at this time.
[2017-01-19] MEDS ORDERED: Warfarin 5 MG, Warfarin 2.5 MG PO ONE ×2 (17:00)
--- NOTE | 2017-01-19 21:39 | NUR ---
Neuro: Neuro assessment without significant finding. Pt alert and oriented, makes needs known. Strength/cancer program coordinator equal bilateral. Pt aware of plan of care and further tests due tomorrow. Tylenol administered for sleep as pt states getting very little sleep the past 2 nights.
[2017-01-20] VITALS (8 sets, daily range): BP systolic 124–161; BP diastolic 69–90; PULSE 55–74; RESP 16–20; O2SAT 96–100
[2017-01-20] MEDS: 0.9% Sodium Chloride 1,000 ML IV SCH (00:02)
[2017-01-20] MEDS: Heparin 5,000 Unit/mL Inj SUBQ SCH ×3 (00:37→17:17)
--- NOTE | 2017-01-20 05:26 | NUR ---
V tach: Pt with 5 beats of V tach through the night while sleeping; assymptomatic. MD notified. Labs ordered for this morning.
[2017-01-20 06:27] LABS: BASOPHILS % (AUTO) 0.4 % (0-3); EOSINOPHILS % (AUTO) 4.7 % (0-5); MONOCYTES % (AUTO) 12.2 % (4-12); Mean Corpuscular Hemoglobin 26.4 pg (27.0-35.0); Mean Corpuscular Volume 85.2 fL (81-100); NEUTROPHILS % (AUTO) 61.7 % (40-74); Platelet Count 156 bil/L (150-400)
[2017-01-20 06:43] LABS: INR 2.05 ratio
[2017-01-20 06:45] LABS: Magnesium 2.2 mg/dL (1.6-2.6)
[2017-01-20] MEDS: TIMOLOL 0.25% BOTH_EYES SCH (08:36)
--- NOTE | 2017-01-20 11:39 | DRSVH ---
[facility] [address] [place] [address] Echocardiogram Report Name: CHAY CADET RStudy Date: 01/20/2017 Height: 71 in Hospital Exam Location: [facility] Weight: 161 lb Gender: Male BSA: 1.9 m2 : 1930 Age: 86 yrs BP: 136/81 mmHg Reason For Study: Stroke History: hypertension, TIA Ordering Physician: Performed By: Annette Triplett Referring Physician: Sathya Arellano Interpretation Summary The patient was in atrial fibrillation with heart rates between 48-66 bpm during the exam. The left ventricle is normal in size. The ejection fraction is estimated to be 60-65%. There is no LV thrombus. The right ventricle is mildly dilated. The right ventricular systolic function is normal. There is severe biatrial enlargement. There is borderline mitral valve prolapse. There is prolapse of the posterior mitral valve leaflet(s). There is moderate mitral regurgitation. There is mild aortic regurgitation. There is no hemodynamically significant valvular aortic stenosis. There is mild to moderate tricuspid regurgitation. The right ventricular systolic pressure is estimated at 44 mmHg assuming a right atrial pressure of 8 mm Hg. Procedure: A two-dimensional transthoracic echocardiogram with color flow and Doppler was performed. The study quality was technically adequate. There is no prior echocardiogram noted for this patient. The patient was in atrial fibrillation with heart rates between 48-66 bpm during the exam. Left Ventricle: Proximal septal thickening is noted. There is mild concentric left ventricular hypertrophy. The left ventricle is normal in size. There is no echo evidence for significant left ventricular outflow tract obstruction. There is no thrombus. The ejection fraction is estimated to be 60-65%. There are no focal wall motion abnormalities. Diastolic function could not be accurately assessed due to atrial fibrillation. Right Ventricle: The right ventricle is mildly dilated. The right ventricular systolic function is normal. Atria: There is severe biatrial enlargement. There is no Doppler evidence for an interatrial shunt. Mitral Valve: There is mild to moderate mitral annular calcification. The mitral valve leaflets are mildly calcified. There is prolapse of the posterior mitral valve leaflet(s). There is borderline mitral valve prolapse. There is moderate mitral regurgitation. The mitral regurgitant jet is eccentrically directed. Aortic Valve: The aortic valve is trileaflet. The aortic valve is mildly calcified. Leaflet mobility is mildly reduced. There is no hemodynamically significant valvular aortic stenosis. There is mild aortic regurgitation. Tricuspid Valve: The tricuspid valve leaflets are thickened and/or calcified, but open well. There is borderline tricuspid valve prolapse. Redundant elongated chordae are noted. There is mild to moderate tricuspid regurgitation. The right ventricular systolic pressure is estimated at 44 mmHg assuming a right atrial pressure of 8 mm Hg. Pulmonic Valve: The pulmonic valve is not well seen, but is grossly normal. There is trace pulmonic regurgitation. Great Vessels: The aortic root is normal size. There is aortic root sclerosis/calcification. The ascending aorta is mildly enlarged. The aortic arch could not be visualized. The IVC is dilated (diameter is greater than 2.1 cm) yet it collapses greater than 50% with a sniff. This suggests a right atrial pressure of 8 mm Hg. Pericardium/ Pleura There is no pericardial effusion. There is no pleural effusion. MMode/2D Measurements & Calculations LVIDd: 4.4 cmLA dimension: 5.0 cm RA long axis: 7.0 cm LVOT diam LVIDs: 2.4 cm FS: 46.2 % LA A2 area: 30.1 cm RA area: 26.8 cm AoV Opening EPSS: 0.57 cmLA A4 area: 38.4 cm RA vol: 87.3 ml IVSd: 1.1 cm LA length (vol): 7.8 cm RA : 45.4 ml/m2 Ao root diam LVPWd: 1.1 cmLA vol: 125.4 ml asc Aorta Diam LA vol index: 65.2 ml/m IVC diam: 2.3 cm TYSHAWN (plan) LV guzman. diameter/BSA LV sys. diameter/BSA RVD1 (basal) : 2.1 cm2 (cm/m^2): 2.3 (cm/m^2): 1.2 : 4.5 cm TAPSE: 1.4 cm Doppler Measurements & Calculations Ao V2 max: 139.2 cm/secMV E max fabricio Med Peak E' Fabricio TR max fabricio Ao max P.8 mmHg : 89.6 cm/sec : 301.1 cm/sec Ao mean P.1 mmHg E/E' med: 13.0 TR max PG LVOT Max Fabricio Lat Peak E' Fabricio : 36.3 mmHg : 60.5 cm/sec PA V2 max TYSHAWN(I,D): 2.2 cm E/E' lat: 9.1 : 65.9 cm/sec sev ratio: 0.44 E/e' average PA mean PG AI P1/2t: 701.4 msec : 0.88 mmHg AI dec slope PA Accel Time : 119.2 cm/s2c : 0.10 sec MV dec time: 0.19 sec Ao V2 mean LV V1 max PG PA V2 mean : 96.6 cm/sec : 44.5 cm/sec Ao V2 VTI LV V1 VTI: 14.1 cm TYSHAWN(V,D): 2.2 cm2 TYSHAWN indexed to BSA (cm^2/m^2): 1.2 Reading Physician:JO
--- NOTE | 2017-01-20 14:35 | PCM.PHAPRO ---
Progress WARFARIN MANAGEMENT PER PHARMACY [facility] NTV AK RTM DFF Date Jan 18-Jan 19-Jan 20-Dec INR 1.69 1.79 1.80 2.05 INR change 0.1 0.01 0.25 Warf Dose 7.5 7.5 7.5 Subtherapeutic based on new goal of 2.5-3.5 per team. With up-trend, will continue warfarin 7.5mg today and continue to monitor. Irving Andrews, PharmD Irving Andrews Jan 20, 2017 14:35
[2017-01-20] MEDS ORDERED: Warfarin 5 MG, Warfarin 2.5 MG PO ONE ×2 (17:00)
--- NOTE | 2017-01-20 18:00 | NUR ---
Tests-doppler Pleasant and cooperative pt, able to make needs known and uses call light appropriately. ECHO completed in room today and results discussed with pt and family by MD. Doppler pending to be done tomorrow d/t technical failure. Bed in low position, upper rails up, call light in reach.
--- NOTE | 2017-01-20 18:16 | PCM.PNMED ---
Subjective Date of Service Jan 20, 2017 Subjective 86-year-old male with past medical history significant for TIA 8 years ago, hypertension, atrial fibrillation on Coumadin who presents to the emergency department with lightheadedness followed by slurred speech and called the walking. Overnight patient had 5 beats of V. tach while sleeping. He was asymptomatic. This morning patient reports feeling well. He is standing in his room getting ready to sit and read the paper in his bedside chair. She reports no pain or discomfort. He feels his gait is normal as he has had his right hip replaced previously. He is able to ambulate into the hallway and back without evidence of unsteadiness. Exam Vital Signs Vital Sign - Last Date Time Temp Pulse Resp B/P Pulse Ox O2 Delivery O2 Flow Rate FiO2 01/20/17 05:47 36.4 55 20 136/81 97 Room Air Intake and Output 01/19/17 01/19/17 01/20/17 Cumulative From/Thru 15:00 23:00 07:00 01/17/17 14:59 - 01/20/17 05:47 Intake Total 1000 ml 3510 ml Output Total 2505 ml Balance 1000 ml 1005 ml Intake Oral 1000 ml 2682 ml IV Total 828 ml Output Urine Total 2505 ml # Voids 4 4 # Bowel Movements 0 1 Exam General: No acute distress, well-developed, well-nourished, appropriately interactive HEENT: Normocephalic, atraumatic. External ears without defect. Pupils equal, round, and reactive to light and accommodation. Anicteric sclerae, moist conjunctivae, and no lid lag. Oropharynx free of erythema and cobble stoning with moist mucosa. Neck: Supple with full range of motion. No jugular venous distension. No lymphadenopathy or thyromegaly. Cardiovascular: Regular rate and rhythm with no murmurs, rubs, or gallops appreciated Pulmonary: Clear to auscultation bilaterally with no crackles, wheezes, or rhonchi. Normal respiratory effort with no use of accessory muscles. Abdomen: Bowel tones present. Soft, nontender, nondistended. No hepatosplenomegaly or masses appreciated. Extremities: No clubbing, cyanosis, edema, or lymphadenopathy appreciated. Skin: Normal temperature, turgor, and texture; no rash, ulcers, or subcutaneous nodules appreciated. Neurological: Cranial nerves grossly intact. Normal muscle strength, tone, and bulk. [id number] mildly ataxic, much improved since 2 days prior. finger to nose normal bilaterally. Patient speaks in full sentences that are intelligible. Psychiatric: Normal mood and affect. Alert and oriented to person, place, and time. Lab and Diagnostics Result Diagram: 01/20/1760401/20/17604 X-Rays, CTs and MRIs PROCEDURE: X-RAY CHEST ONE VIEW, PORTABLE Lungs and pleura: No pleural effusions or pneumothorax. Scattered calcified granulomata are present within the bilateral mid and upper lungs. Lungs are otherwise clear. IMPRESSION: 1. No acute process. 2. Cardiomegaly. 3. Remote granulomatous disease. Dictated by: Benjamín Conroy M.D. on 01/17/2017 at 17:09 PROCEDURE: CT BRAIN WITHOUT CONTRAST IMPRESSION: No acute intracranial abnormality. Dictated by: Benjamín Conroy M.D. on 01/17/2017 at 17:16 PROCEDURE: MRI STROKE PROTOCOL IMPRESSION: BRAIN MRI: Within the cerebral hemispheres bilaterally no ischemic injury is seen but there is definite multifocal small punctate areas of acute or subacute ischemic injury involving the cerebellar hemispheres bilaterally slightly greater on the left than the right. No hemorrhage or mass effect is associated. The appearance is suggestive of an embolic event through the posterior circulation traversing cephalad through the basilar artery and then extending bilaterally into the cerebellar parenchyma. BRAIN MR ANGIOGRAM: Normal intracranial MR angiogram. NECK MR ANGIOGRAM: There is a 4.5 cm length of the proximal left vertebral artery which shows no internal flow but above that level of the left vertebral artery can be seen as perfused, likely through retrograde flow from the posterior circulation. The more superior vertebral arteries bilaterally are patent, and the basilar artery appears normal as does the extension of posterior circulation and the posterior fossa. 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 The estimate of stenosis included in the report of the imaging study was calculated using the NASCET method Dictated by: Geraldo Chambers M.D. on 01/17/2017 at 20:08 Cardiac Echo Impressions Echocardiogram Report Interpretation Summary The patient was in atrial fibrillation with heart rates between 48-66 bpm during the exam. The left ventricle is normal in size. The ejection fraction is estimated to be 60-65%. There is no LV thrombus. The right ventricle is mildly dilated. The right ventricular systolic function is normal. There is severe biatrial enlargement. There is borderline mitral valve prolapse. There is prolapse of the posterior mitral valve leaflet(s). There is moderate mitral regurgitation. There is mild aortic regurgitation. There is no hemodynamically significant valvular aortic stenosis. There is mild to moderate tricuspid regurgitation. The right ventricular systolic pressure is estimated at 44 mmHg assuming a right atrial pressure of 8 mm Hg. Assessment & Plan Misael Denise is an 86-year-old male with past medical history significant for TIA 8 years ago, hypertension, atrial fibrillation on Coumadin who presents to the emergency department with lightheadedness followed by slurred speech and called the walking. 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 Hospital day #4 1. 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 - Improved gait/dysmetria - slurred speech resolved - left upper extremity weakness (patient attributes to left shoulder issues) - Echo as above - PT cleared patient to go home - Speech therapy recommends Thin/Dysphagia Mechanical diet with medication as tolerated. - Lipid panel normal - permissive hypertension allowed for 24 hours, when necessary labetalol and enalapril, will restart home losartan - Statin, restarted ASA since hemorrhagic conversion timeframe has passed, continue Coumadin - MRI head/neck results above, unremarkable CT head - Review of up-to-date indicates that since patient was subtherapeutic with an INR of 1.69 at the time of his symptoms it is appropriate to continue with an INR goal of 2-3 - coumadin for pharmacy to dose for goal INR 2.0-3.0. - up-to-date recommends against antiplatelet initially due to higher chance of hemorrhagic conversion, aspirin was restarted this morning 2. Elevated troponin of undetermined significance, present on admission, active - Troponin mildly elevated with maximum of 0.024, continues to remain stable - Patient has no chest pain, back pain, shoulder pain, shortness of breath, or diaphoresis - EKG shows atrial fibrillation at a rate of 59, no ST changes - Recheck troponin with morning labs Chronic issues known prior to admission, present on admission Hypertension -Restarted home losartan TIA 8 years ago unilateral weakness resolved Atrial fibrillation on Coumadin Right hip hemiarthroplasty -Patient with stiffness in the [id number] exam DVT prophylaxis heparin scd ambulate -- DC HEPARIN WHEN INR > 2.5 Melatonin to help with hospital related insomnia Dispo: Anticipate patient will be able to discharge tomorrow pending stable therapeutic INR as his CVA is a direct result of his AFib. Pain Evaluation: Adequate Pain Control GI Prophylaxis: Not indicated VTE Prophylaxis: Sub-Q Heparin (Unfractionated) VTE Mechanical Devices: Intermittant Pneumatic CD Resuscitation Status: CPR: Attempt Resuscitation Attending Statement The patient was seen and examined together with Dr. Velazquez on 01/20/2017 and I agree with the history, exam and plan as outlined in the note above. Mary Velazquez DO Jan 20, 2017 08:19 Jamie Durán MD Jan 20, 2017 21:01
[2017-01-21 01:15] VITALS: BP 139/81; PULSE 67; RESP 17; O2SAT 98
[2017-01-21] MEDS: Heparin 5,000 Unit/mL Inj SUBQ SCH ×2 (01:15→08:40)
[2017-01-21 05:51] VITALS: BP 140/78; PULSE 68; RESP 16; O2SAT 97
[2017-01-21 07:22] LABS: BASOPHILS % (AUTO) 0.3 % (0-3); EOSINOPHILS % (AUTO) 3.7 % (0-5); Mean Corpuscular Hemoglobin 26.5 pg (27.0-35.0); Mean Corpuscular Volume 84.4 fL (81-100); NEUTROPHILS % (AUTO) 65.5 % (40-74); Platelet Count 160 bil/L (150-400)
[2017-01-21 07:36] LABS: TROPONIN T 0.015 ug/L (0.0-0.011)
[2017-01-21 07:37] LABS: INR 2.21 ratio
[2017-01-21] MEDS: TIMOLOL 0.25% BOTH_EYES SCH (08:40)
--- NOTE | 2017-01-21 08:57 | NUR ---
Pt. screened. Discussed with physical therapy. No OT needs. DC order.
[2017-01-21 09:07] VITALS: BP 124/71; PULSE 68; RESP 18; O2SAT 96
[2017-01-21 11:05] VITALS: PULSE 72
[2017-01-21] MEDS ORDERED: ASPI81TA3 PO (11:15)
--- NOTE | 2017-01-21 12:52 | PCM.DIMED ---
Mary Velazquez DO 01/21/17 1251: Discharge Instructions Date of Service Jan 21, 2017 Dates of Hospitalization Jan 17, 2017 at 18:38 Discharge Diagnosis Discharge Diagnosis 1. 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 Elevated troponin of undetermined significance 3. Hypertension 4. Atrial fibrillation on Coumadin 5. History of Right hip hemiarthroplasty Medication Instructions Continue to take her home medications. He will continue the dose of warfarin at 7.5 mg. You should also take aspirin 81mg daily. Diet Heart Healthy Activity No restrictions Call your provider Fever or Chills, Shortness of breath, Chest pain, Excessive diarrhea, Weakness ( unilateral) Patient Instructions You had a small stroke, your symptoms have essentially resolved. Continue your medications as prescribed. Follow-up plan Follow-up with Dr. Alvarado tomorrow. Follow-up Provider: Stef Alvarado MD Follow-up with PCP in: 1 week Jamie Durán MD 01/21/17 1937: Discharge Instructions Attending's Statement The patient was seen and examined together with Dr. Velazquez on 01/21/2017 and I agree with the discharge instructions outlined in the note above. Mary Velazquez DO Jan 21, 2017 12:51 Jamie Durán MD Jan 21, 2017 19:37
--- NOTE | 2017-01-21 13:11 | NUR ---
Social Work-discharge: Data:EMR reviewed. Pt is on day 4 of hospitalization for CVA per H&P. Pt is medically stable for discharge. Pt has resides at home with his . PT/ST/OT have cleared pt for home no needs. SW confirmed plan and pt's family to provide transport home today. No discharge needs identified. All updated and agreeable to plan. Assessment:Pt who is independent at baseline. Plan: Pt to discharge home today via POV. No discharge needs identified. All updated and agreeable to plan. MARCIANO Rand
--- NOTE | 2017-01-21 13:38 | NUR ---
Discharge Pt discharged home with daughter via private vehicle, pt walked out. Pt A/O x3, verbalized understanding of discharge and new Rx instructions, personal belongings accounted for and left with pt.
--- NOTE | 2017-01-21 18:55 | PCM.DC.MED ---
Discharge Summary Date of Service Jan 21, 2017 Dates of Hospitalization Date of Hospital Admission Jan 17, 2017 at 18:38 Date of Discharge: Jan 21, 2017 Providers: Admitting Physician: Donato Schmid MD Primary Care Physician: Sathya Arellano Attending Physician: Donato Schmid MD Diagnosis at Time of Discharge Diagnosis at Time of Discharge 1. 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 Elevated troponin of undetermined significance 3. Hypertension 4. Atrial fibrillation on Coumadin 5. History of Right hip hemiarthroplasty Consultations Pharmacy for warfarin dosing Procedures XRay, CTs & MRIs PROCEDURE: X-RAY CHEST ONE VIEW, PORTABLE Lungs and pleura: No pleural effusions or pneumothorax. Scattered calcified granulomata are present within the bilateral mid and upper lungs. Lungs are otherwise clear. IMPRESSION: 1. No acute process. 2. Cardiomegaly. 3. Remote granulomatous disease. Dictated by: Benjamín Conroy M.D. on 01/17/2017 at 17:09 PROCEDURE: CT BRAIN WITHOUT CONTRAST IMPRESSION: No acute intracranial abnormality. Dictated by: Benjamín Conroy M.D. on 01/17/2017 at 17:16 PROCEDURE: MRI STROKE PROTOCOL IMPRESSION: BRAIN MRI: Within the cerebral hemispheres bilaterally no ischemic injury is seen but there is definite multifocal small punctate areas of acute or subacute ischemic injury involving the cerebellar hemispheres bilaterally slightly greater on the left than the right. No hemorrhage or mass effect is associated. The appearance is suggestive of an embolic event through the posterior circulation traversing cephalad through the basilar artery and then extending bilaterally into the cerebellar parenchyma. BRAIN MR ANGIOGRAM: Normal intracranial MR angiogram. NECK MR ANGIOGRAM: There is a 4.5 cm length of the proximal left vertebral artery which shows no internal flow but above that level of the left vertebral artery can be seen as perfused, likely through retrograde flow from the posterior circulation. The more superior vertebral arteries bilaterally are patent, and the basilar artery appears normal as does the extension of posterior circulation and the posterior fossa. 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 The estimate of stenosis included in the report of the imaging study was calculated using the NASCET method Dictated by: Geraldo Chambers M.D. on 01/17/2017 at 20:08 Cardiac Echo Impression Echocardiogram Report Interpretation Summary The patient was in atrial fibrillation with heart rates between 48-66 bpm during the exam. The left ventricle is normal in size. The ejection fraction is estimated to be 60-65%. There is no LV thrombus. The right ventricle is mildly dilated. The right ventricular systolic function is normal. There is severe biatrial enlargement. There is borderline mitral valve prolapse. There is prolapse of the posterior mitral valve leaflet(s). There is moderate mitral regurgitation. There is mild aortic regurgitation. There is no hemodynamically significant valvular aortic stenosis. There is mild to moderate tricuspid regurgitation. The right ventricular systolic pressure is estimated at 44 mmHg assuming a right atrial pressure of 8 mm Hg. Brief History History of present illness on admission per Dr. Schmid: 86-year-old male, left handed, with only 1 TIA 8 years ago in [place] with negative radiographic workup at that time, with chronic atrial fibrillation that started more than 8 years ago, BIB family after he tolerated breakfast this morning then complained of nausea and lightheadedness, he took a nap, by that time granddaughter who is a nurse stopped by, she found him to have slurred speech w/ blood pressure 164/89 heart rate 60s and unsteady gait. No recent aspirin use. No recent echo. Not diabetic. no change in diet. no change in medications. typically INR 2.4-2.5. In the ER INR for atrial fibrillation is 1.7, slurred speech resolved, unsteady wide based gait ongoing, MR angio is consistent with bilateral left greater than right embolic cerebrallar stroke acute/subacute. Hospital Course Misael Denise is an 86-year-old male with past medical history significant for TIA 8 years ago, hypertension, atrial fibrillation on Coumadin who presents to the emergency department with lightheadedness followed by slurred speech and called the walking. 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 1. 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 - Improved gait/dysmetria - slurred speech resolved - left upper extremity weakness (patient attributes to left shoulder issues) - Echo as above - PT cleared patient to go home - Speech therapy recommends soft diet. - Lipid panel normal - permissive hypertension allowed for 24 hours, will restart home losartan prior to discharge - Statin, restarted ASA since hemorrhagic conversion timeframe has passed, continue Coumadin - MRI head/neck results above, unremarkable CT head - Review of up-to-date indicates that since patient was subtherapeutic with an INR of 1.69 at the time of his symptoms it is appropriate to continue with an INR goal of 2-3 - Patient continued and discharged on his home dose of 7.5 mg warfarin in the evening. - up-to-date recommends against antiplatelet initially due to higher chance of hemorrhagic conversion, aspirin was restarted this morning 2. Elevated troponin of undetermined significance, present on admission, active - Troponin mildly elevated with maximum of 0.024, continues to remain stable; 0.015 on day of discharge - Patient has no chest pain, back pain, shoulder pain, shortness of breath, or diaphoresis - EKG shows atrial fibrillation at a rate of 59, no ST changes Chronic issues known prior to admission, present on admission Hypertension -Restarted home losartan TIA 8 years ago unilateral weakness resolved Atrial fibrillation on Coumadin Right hip hemiarthroplasty -Patient with stiffness in the [id number] exam Melatonin was given to help with hospital related insomnia condition on discharge stable Exam Vital Signs (Last) Date Time Temp Pulse Resp B/P Pulse Ox O2 Delivery O2 Flow Rate FiO2 01/21/17 11:05 72 01/21/17 09:07 36.3 18 124/71 96 Room Air Exam General: Elderly gentleman with enthusiastic smile. No acute distress, well- developed, well-nourished, appropriately interactive HEENT: Normocephalic, atraumatic. External ears without defect. Pupils equal, round, and reactive to light and accommodation. Anicteric sclerae, moist conjunctivae, and no lid lag. Oropharynx free of erythema and cobble stoning with moist mucosa. Neck: Supple with full range of motion. No jugular venous distension. No lymphadenopathy or thyromegaly. Cardiovascular: Regular rate and rhythm with no murmurs, rubs, or gallops appreciated Pulmonary: Clear to auscultation bilaterally with no crackles, wheezes, or rhonchi. Normal respiratory effort with no use of accessory muscles. Abdomen: Bowel tones present. Soft, nontender, nondistended. No hepatosplenomegaly or masses appreciated. Extremities: No clubbing, cyanosis, edema, or lymphadenopathy appreciated. Skin: Normal temperature, turgor, and texture; no rash, ulcers, or subcutaneous nodules appreciated. Neurological: Cranial nerves grossly intact. Normal muscle strength, tone, and bulk. [id number] mildly ataxic, much improved since 3 days prior. Finger to nose normal bilaterally. Patient speaks in full sentences that are intelligible. Psychiatric: Normal mood and affect. Alert and oriented to person, place, and time. Test 01/17/17 15:17 01/17/17 22:21 01/18/17 05:40 01/19/17 05:19 Hold Hob[place] Top Tube Received (Received) Urine Color Straw (YELLOW) Urine Appearance Clear (CLEAR,HAZY) Urine pH 5.5 (5.0-8.0) Urine Specific [place] 1.010 (1.003-1.035) Urine Protein Negativemg/dL (NEG,TRACE) Urine Glucose (UA) Negativemg/dL (NEGATIVE) Urine Ketones Negativemg/dL (NEGATIVE) Urine Occult Blood Trace (NEGATIVE) Urine Nitrite Negative (NEGATIVE) Urine Bilirubin Negative (NEGATIVE) Urine Urobilinogen Normalmg/dL (NORMAL) Urine Leukocyte Esterase Negative (NEGATIVE) Urine RBC 0-2/hpf (0-2) Urine WBC 0-5/hpf (0-5) Urine Epithelial Cells None/hpf (NONE-MOD) Urine Crystals None seen (NONE SEEN) Urine Bacteria None/hpf (NONE-FEW) Urine Hyaline Casts None/lpf (NONE) Urine Granular Casts None seen (NONE SEEN) Urine Waxy Casts None seen (NONE SEEN) Urine Red Blood Cell Casts None seen (NONE SEEN) Urine White Blood Cell Casts None seen (NONE SEEN) Urine Mucus None seen (None Seen) Urine Trichomonas None seen (NONE SEEN) Urine Yeast None (NONE SEEN) Urinalysis Comment None Urine Culture Reflexed Not indicated Total Creatine Kinase 143U/L (21-232) Creatine Kinase MB 4.2ng/mL (0.0-10.4) Creatine Kinase MB % % (0.0-5.0) Triglycerides Level 68mg/dL (0-149) Cholesterol Level 148mg/dL (100-199) LDL Cholesterol, Calculated 72.400mg/dL (0-99) VLDL Cholesterol 13.600mg/dL HDL Cholesterol 62mg/dL (>39) Cholesterol/HDL Ratio 2.39 (0.0-4.4) Pro-B-Type Natriuretic Peptide 4545pg/mL (0-486) Test 01/20/17 06:05 01/21/17 06:35 Magnesium Level 2.2mg/dL (1.6-2.6) White Blood Count 6.8th/mm3 (3.8-10.1) Red Blood Count 4.75mil/mm3 (4.40-5.80) Hemoglobin 12.6g/dL (13.8-17.2) Hematocrit 40.1% (41.0-50.0) Mean Corpuscular Volume 84.4fL (81-100) Mean Corpuscular Hemoglobin 26.5pg (27.0-35.0) Mean Corpuscular Hemoglobin Concent 31.4% (32.0-37.0) Red Cell Distribution Width 16.8% (12.3-15.4) Platelet Count 160bil/L (150-400) Neutrophils (%) (Auto) 65.5% (40-74) Lymphocytes (%) (Auto) 17.2% (14-46) Monocytes (%) (Auto) 13.0% (4-12) Eosinophils (%) (Auto) 3.7% (0-5) Basophils (%) (Auto) 0.3% (0-3) Prothrombin Time 24.0sec (8.1-12.5) Prothromb Time International Ratio 2.21ratio Sodium Level 143mEq/L (134-144) Potassium Level 4.6mEq/L (3.5-5.2) Chloride Level 106mEq/L (97-108) Carbon Dioxide Level 22mmol/L (18-29) Blood Urea Nitrogen 19mg/dL (8-27) Creatinine 0.89mg/dL (0.76-1.27) Estimat Glomerular Filtration Rate 86mL/min (>59) Glucose Level 85mg/dL (60-99) Calcium Level 9.1mg/dL (8.5-10.1) Total Bilirubin 0.6mg/dL (0.0-1.2) Aspartate Amino Transf (AST/SGOT) 22U/L (0-50) Alanine Aminotransferase (ALT/SGPT) 15U/L (0-44) Alkaline Phosphatase 80U/L (25-160) Troponin T 0.015ug/L (0.0-0.011) Total Protein 6.4g/dL (6.4-8.4) Albumin 3.8g/dL (3.4-5.0) Discharge Medications Discharge Medications Aspirin Chew (Aspirin Chew) 81 Mg Chew 81 MG PO DAILY Prescribed by: LUIS EDUARDO ALVA DO Calcium Carbonate (Tums) 500 Mg Tab.chew 500 MG PO DAILY (Reported) Cholecalciferol (Vitamin D3) (Vitamin D) 1,000 Unit Tablet 1,000 UNIT PO DAILY ( Reported) Donepezil (Donepezil) 5 Mg Tablet 5 MG PO HS (Reported) Ferrous Gluconate (Ferrous Gluconate) 324 Mg Tablet 324 MG PO DAILY (Reported) Latanoprost (Latanoprost) 2.5 Ml Drops 1 GTT BOTH_EYES HS (Reported) Losartan Potassium (Losartan Potassium) 100 Mg Tablet 100 MG PO QAM (Reported) Multivit with Calcium,Iron,Min (Therapeutic M) 1 Each Tablet 1 EACH PO DAILY ( Reported) Timolol Maleate/Pf (Timoptic 0.25% Ocudose Drop) 1 Each Droperette 1 EACH BOTH_ EYES QAM (Reported) Warfarin Sodium (Warfarin Sodium) 7.5 Mg Tablet 7.5 MG PO QAM (Reported) As needed Acetaminophen (Acetaminophen) 325 Mg Tablet 325-650 MG PO Q4H PRN PRN For Fever (Reported) Additional med instructions Continue to take her home medications. He will continue the dose of warfarin at 7.5 mg. You should also take aspirin 81mg daily. Followup Plan Disposition: Patient discharged home with no needs Follow-up plan Follow-up with Dr. Alvarado tomorrow. Discharge Diet: Heart Healthy Discharge Activity: No restrictions Patient Instructions You had a small stroke, your symptoms have essentially resolved. Continue your medications as prescribed. Follow-up Provider: Stef Alvarado MD Follow-up with PCP in: 1 week Time spent 35 minutes coordinating discharge and counselling patient and family Attending Statement The patient was seen and examined together with Dr. Alva on 01/21/2017 and I agree with the discharge summary outlined in the note above. copies to: Stef Alvarado MD, Erika R DO Jan 21, 2017 18:55 Jamie Durán MD Jan 21, 2017 19:40
== END 2017-01-21 13:37 | disposition home or self-care (01) | DRG 66 ==
LOC: SED 14:56 → MPC 18:38 → OBSVTOIN 18:38
PROVIDERS: ADMIT Urology; ATTEND Urology
DX: I63.113 Cerebral infarction due to embolism of bilateral vertebral arteries (principal); I48.2 Chronic atrial fibrillation; I10 Essential (primary) hypertension; Z79.01 Long term (current) use of anticoagulants

== ENCOUNTER 2017-02-08 01:44 | Emergency (ER) | payer MEDICARE ==
[~2017-02-08] VITALS: Ht 180.3 cm; Wt 75.0 kg
[~2017-02-08 01:44] MED LIST changes: +ACET325T51 PO; +ASPI81TA3 PO; -CALC-766 PO; +CALC500T9 PO; +CHOL100043 PO; +DONE5TAB30 PO; -ENOX40DI8 SUBQ; +FERR324T5 PO; -Hydrocodone/Acetaminophen PO; +MULT-140 PO; -VIT D PO
[2017-02-08 01:57] VITALS: BP 183/105; PULSE 72; RESP 16; O2SAT 99
[2017-02-08 02:15] LABS: BASOPHILS % (AUTO) 0.5 % (0-3); EOSINOPHILS % (AUTO) 3.8 % (0-5); MONOCYTES % (AUTO) 13.9 % (4-12); Mean Corpuscular Volume 86.3 fL (81-100); NEUTROPHILS % (AUTO) 54.5 % (40-74); Platelet Count 179 bil/L (150-400)
[2017-02-08 02:22] LABS: INR 2.39 ratio
[2017-02-08 03:40] VITALS: BP 148/82; PULSE 66; RESP 20; O2SAT 97
--- NOTE | 2017-02-08 03:41 | ED.REPORT ---
HPI-Dizziness / Weakness Date of Service Feb 08, 2017 ED Provider: Humberto Pulliam MD Patient is a pleasant 86-year-old gentleman who presents to the [facility] emergency department after experiencing dizzy upon waking up in the 1: 00 hour this morning. This was of concern for him because this is reminiscent of the symptoms of his CVA roughly 2-1/2 weeks ago for which he was admitted. The symptom of dizziness resolved at home before being transported to the hospital, however he wished to be evaluated out of concern for repeat or worsening CVA. He denies any lightheadedness, dizziness, chest pain, shortness of breath, nausea vomiting diarrhea, numbness tingling weakness in his arms anterior legs, fevers, chills, or any pain. No dysuria or urinary frequency. Nursing Notes Stated Complaint: DIZZY Chief Complaint: Neuro Symptoms/ Deficits Nursing Notes Reviewed: Yes Allergies: Coded Allergies: No Known Allergies (Verified Allergy, Unknown, 02/08/17) Scheduled Aspirin Chew (Aspirin Chew) 81 Mg Chew 81 MG PO DAILY Calcium Carbonate (Tums) 500 Mg Tab.chew 500 MG PO DAILY Cholecalciferol (Vitamin D3) (Vitamin D) 1,000 Unit Tablet 1,000 UNIT PO DAILY Donepezil (Donepezil) 5 Mg Tablet 5 MG PO HS Ferrous Gluconate (Ferrous Gluconate) 324 Mg Tablet 324 MG PO DAILY Latanoprost (Latanoprost) 2.5 Ml Drops 1 GTT BOTH_EYES HS Losartan Potassium (Losartan Potassium) 100 Mg Tablet 100 MG PO QAM Multivit with Calcium,Iron,Min (Therapeutic M) 1 Each Tablet 1 EACH PO DAILY Timolol Maleate/Pf (Timoptic 0.25% Ocudose Drop) 1 Each Droperette 1 EACH BOTH_ EYES QAM Warfarin Sodium (Warfarin Sodium) 7.5 Mg Tablet 7.5 MG PO QAM Scheduled PRN Acetaminophen (Acetaminophen) 325 Mg Tablet 325-650 MG PO Q4H PRN PRN For Fever General Time Seen by MD: 02:34 Chief Complaint Dizzy Similar Sx Previous: Yes Risk Factors NIH Stroke Scale Level of Consciousness: Alert and responsive (0) Ask Month & Age: Both questions right (0) Open/Close Eyes/Hand Microelectronics Technician: Performs both tasks (0) Horizontal EO Movements: None (0) Visual Jacobson: No visual loss (0) Facial Palsy: Normal symmetry (0) Right Arm Motor Drift (10s): No drift 10 sec (0) Left Arm Motor Drift (10s): No drift 10 sec (0) Right Leg Motor Drift (5s): No drift 5 sec (0) Left Leg Motor Drift (5s): No drift 5 sec (0) Limb Ataxia FNF/Heel-Mix: No ataxia (0) Sensation (Arms/Legs/Face): No sensory loss (0) Language Aphasia: No aphasia, normal (0) Dysarthria: No dysarthria, normal (0) Extinction/Inattention: No exctinct/inattent (0) NIHSS Score: 0 Past Medical History Past Medical History Notes: Past Medical History Hypertension TIA Atrial fibrillation on Coumadin 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 Past Surgical History Vasectomy Right hip hemiarthroplasty Right inguinal hernia repair Cataract extraction bilaterally Smoking History Never Smoker Social History Alcohol Use: Denies alcohol use Drug Use: Denies drug use Other Social History: Good social support, Ambulatory Status Independent Review of Systems Complete sys rev & neg: except as marked. Physical Exam General: Laying in bed, no apparent distress. HEENT: Normocephalic, atraumatic, EOMI grossly, mucous membranes moist, neck supple without lymphadenopathy, conjunctiva pink. Cardiovascular: Irregularly irregular, rate controlled, 3 out of 6 blowing systolic murmur heard best at left sternal border. Peripheral pulses 2/4 equal bilaterally upper and lower extremities. Pulmonary: Clear to auscultation bilaterally, no W/R/R. Abdominal: Soft to palpation, bowel sounds present 4, no hepatosplenomegaly. Negative rebound. Extremities: No edema appreciated. No tenderness, asymmetry. Neuro: Neurologically grossly intact, strength is equal bilaterally upper and lower extremities. MSK: Gait is normal, able to move extremities on his own volition, strength 5 out of 5 equal bilaterally to upper and lower extremities. Initial Vital Signs Vital Signs (First) Date Time Temp Pulse Resp B/P Pulse Ox O2 Delivery O2 Flow Rate FiO2 02/08/17 01:57 36.4 72 16 183/105 99 Room Air Initial VS: Reviewed, Vital signs abnormal (improved) Interpretation & Diagnostics Lab Results Interpretation Result Diagram: 02/08/17 0157 02/08/17 0157 Test 02/08/17 01:57 White Blood Count 7.9th/mm3 (3.8-10.1) Red Blood Count 4.74mil/mm3 (4.40-5.80) Hemoglobin 12.8g/dL (13.8-17.2) Hematocrit 40.9% (41.0-50.0) Mean Corpuscular Volume 86.3fL (81-100) Mean Corpuscular Hemoglobin 27.0pg (27.0-35.0) Mean Corpuscular Hemoglobin Concent 31.3% (32.0-37.0) Red Cell Distribution Width 16.3% (12.3-15.4) Platelet Count 179bil/L (150-400) Neutrophils (%) (Auto) 54.5% (40-74) Lymphocytes (%) (Auto) 27.0% (14-46) Monocytes (%) (Auto) 13.9% (4-12) Eosinophils (%) (Auto) 3.8% (0-5) Basophils (%) (Auto) 0.5% (0-3) Hold Purple Top Tube Received (Received) Prothrombin Time 26.0sec (8.1-12.5) Prothromb Time International Ratio 2.39ratio Hold Blue Top Tube Received (Received) Sodium Level 131mEq/L (134-144) Potassium Level 4.9mEq/L (3.5-5.2) Chloride Level 97mEq/L (97-108) Carbon Dioxide Level 25mmol/L (18-29) Blood Urea Nitrogen 38mg/dL (8-27) Creatinine 1.18mg/dL (0.76-1.27) Estimat Glomerular Filtration Rate 62mL/min (>59) Glucose Level 98mg/dL (60-99) Calcium Level 9.3mg/dL (8.5-10.1) Total Bilirubin 0.3mg/dL (0.0-1.2) Aspartate Amino Transf (AST/SGOT) 31U/L (0-50) Alanine Aminotransferase (ALT/SGPT) 20U/L (0-44) Alkaline Phosphatase 88U/L (25-160) Total Protein 6.9g/dL (6.4-8.4) Albumin 4.1g/dL (3.4-5.0) Hold [place] Top Tube Received (Received) Lab Results Interpretation: Mildly hyponatremic INR in therapeutic range CT Head Interpretation No acute intracranial process. "No acute intracranial hemorrhage is identified. Findings consistent with small vessel ischemic change, which is probably chronic. Atrophy." -assistant reading teacher radiology Re-Eval/Medical Decision Med Decision/Clinical Course Symptoms had completely resolved on presentation to the emergency department, head CT was negative for acute bleed or intracranial activity. INR was in therapeutic range. NIH score 0. Findings and interpretation were discussed with the patient and patient's daughter. Advised them that at this point there is nothing to intervene on and he is currently on the recommended treatment. Patient stated understanding and agreement to follow-up with his primary care provider, as well as return to the emergency department if there is return of symptoms or worsening. Counseled Regarding: Diagnosis, Lab results, Need for follow-up, When/why to return to ED Patient Discharge & Departure Impression: Primary Impression: Dizziness Disposition: Home Discharge Condition All VS Reviewed: Yes Patient Instructions: Transient Ischemic Attack (ED) Additional Instructions: Thank you for entrusting us with your care. CAT scan of your head did not show any bleeding. It appears that your symptoms have resolved by the time you arrived at the emergency department. We cannot tell you definitively if you had a transient ischemic attack "mini stroke" or not. Please continue to take your medications as prescribed as this is the continue treatment for transient ischemic attacks, and strokes in general. Your anticoagulation is perfect with your warfarin your at goal with an INR at 2.3. Physical exam did not show any new deficits or concerns. If the symptoms return, please do not hesitate to call [phone]. Please follow-up with your primary care provider, Sathya Arellano, regarding your symptoms and emergency room visit. Referrals: Sathya Arellano (PCP) Attending Statement The patient was seen and examined together with Dr. Paul Hawk and I agree with the history, exam and plan as outlined in the note above. Sathya Arellano Noah M DO Feb 08, 2017 03:41 Humberto Pulliam MD Feb 08, 2017 05:16
[2017-02-08 04:32] VITALS: BP 153/82; PULSE 60; RESP 16; O2SAT 97
--- NOTE | 2017-02-08 07:15 | DRSVH ---
PROCEDURE: CT BRAIN WITHOUT CONTRAST ([id number]) INDICATIONS: neuro TECHNIQUE: Noncontrast 4.5 mm thick angled axial sections acquired from the foramen magnum to the vertex, with c oronal reformats. COMPARISON: [facility], CT, CT BRAIN WO CON, 01/17/2017, 17:10. FINDINGS: Image quality: Excellent. CSF spaces: Basal cisterns are patent. No extra-axial fluid collections. The ventricles are symmet waylon in size and shape. Brain: No intracranial bleeds or masses. There is moderate cerebral volume loss for age, with resul tant ventricular and sulcal prominence. There are periventricular and deep white matter chronic smal l vessel ischemic changes. There is intracranial internal carotid artery atherosclerosis. Skull and face: Calvarium and visualized facial bones appear intact, without suspicious lesions. Sinuses: Visualized sinuses and mastoids are clear. IMPRESSION: 1. No acute intracranial findings. 2. Moderate findings likely associated with microvascular ischemic changes. These findings are concordant with the overnight interpretation. Dictated by: Andria Garcia M.D. on 02/08/2017 at 7:12 Approved by: Andria Garcia M.D. on 02/08/2017 at 7:14
== END 2017-02-08 04:10 | disposition home or self-care (01) ==
LOC: SED 01:44 → EDBD 01:44 → EDUNIT# 01:44 → SED 04:10
DX: R42 Dizziness and giddiness (principal); I11.9 Hypertensive heart disease without heart failure; I48.91 Unspecified atrial fibrillation; Z79.82 Long term (current) use of aspirin; Z79.01 Long term (current) use of anticoagulants